=== PATIENT | male | born 1960 | race Caucasian/White ===

== ENCOUNTER 2017-09-11 19:00 | Observation (INO) ==
[2017-09-11] MEDS ORDERED: 0.9 % Sodium Chloride 1,000 ML IVC ONE (19:21)
[2017-09-11] MEDS ORDERED: Vancomycin 1,000 MG VIAL IVPB ONE (19:21)
[2017-09-11] MEDS ORDERED: cefTRIAXone 2,000 MG in Water for inj. (sterile) 20 ML 20 ML IVP ONE (19:25)
--- NOTE | 2017-09-11 19:27 | Emergency Department Note ---
Disposition Clinical Impression: Cellulitis and abscess of foot excluding toe Disposition: Admitted As Inpatient Condition: Good Instructions: Cellulitis (ED) Time of Disposition: 19:50 (Accepted by Dr Burden) Extremity Problem HPI - General Chief complaint: ED Extremity Problem,Nontraumatic Stated complaint: Painless open areas to left foot onset today Source: patient Limitations: no limitations Nursing Notes Reviewed: Yes Vital Signs Reviewed: Yes - History of Present Illness HPI Narrative: Patient is a pleasant 57-year-old male with past medical history significant for HTN, DM and Dyslipidemia who is presenting to [facility] Emergency Room with a chief complaint off left foot pain stating that skin is peeling. Patient was acting [place] yesterday and was wearing his socks. He did not take his socks off until today around noon wound he noticed erythema, pain and peeled the skin on the dorsum of his left foot. He states that he was wore new socks yesterday but kept them since yesterday. He denies any throbbing or tingling. He denies any prior pain in this foot. He states that the pain is radiating to his ankle joint. Patient denies any fever, chills or night sweats. Pt also denies any eye pain or visual disturbances. There is no sore throat, nasal drainages or facial congestion. There is no chest pain, palpitations or racing heart. Pt also denies any shortness of breath, cough or chest congestion. There is no abdominal pain, nausea, vomiting or diarrhea. There is no urgency, frequency or dysuria. Other than his left foot there is no other muskulo-skeletal pain, arthralgia or back pain. Patient also denies any rash, edema or pruritus. There is no neurological manifestations, no headache, no vertigo or weakness. The patient also denies any anxiety, depression, hallucinations and has no homicidal or suicidal ideations. There is no polyuria , polydipsia or recent weight change. There is no easy bruising or bleeding. Review of other systems is otherwise negative except above. Pt Subjective Complaint: extremity pain, extremity swelling Onset (ago): day(s) Consistency: Worsening Injury Location: lower extremity Pain Scale: 5 Quality: sharp, dull Radiation: none Improves with: nothing - Related Data Home Medications Medication Instructions Recorded Confirmed Lovastatin [Altoprev] 40 mg PO DAILY 09/11/17 09/11/17 Previous Rx's Medication Instructions Recorded Amlodipine Besylate 10 mg PO DAILY #20 tablet 04/04/17 Losartan Potassium [Cozaar] 50 mg PO DAILY #20 tab 04/04/17 Allergies Allergy/AdvReac Type Severity Reaction Status Date / Time Penicillins AdvReac See Verified 09/11/17 19:08 Comments All systems ED: reviewed and negative except as stated. Review of Systems: As Per HPI Constitutional: Denies: fever, chills, weakness Eyes: Denies: eye pain, eye discharge, vision change ENT ED: Denies: ear pain, throat pain, dental pain Cardiovascular: Denies: chest pain, palpitations, dyspnea on exertion Respiratory: Denies: cough, dyspnea, wheezes Gastrointestinal: Denies: abdominal pain, nausea, vomiting Genitourinary: Denies: urgency, dysuria, frequency Musculoskeletal: Reports: joint swelling, arthralgia, myalgia. Denies: back pain, neck pain Integumentary: Reports: rash, abrasion, lesions Psychiatric: Denies: anxiety, depression Endocrine: Denies: fatigue, heat or cold intolerance Hematological/Lymphatic: Denies: easy bleeding, easy bruising Past Medical History - Past Medical History Medical history: Reports: diabetes, hyperlipidemia, hypertension - Social History Smoking Status: Never smoker Smokeless Tobacco Status: Yes Alcohol use: Reports: none Drug use: Reports: none Physical Exam - General Limitations: no limitations General appearance: alert, in no apparent distress - Head Head exam: atraumatic, normocephalic, normal inspection - Eye Eye exam: Present: normal appearance, PERRL, EOMI - Expanded Eye Exam Pupils: Left: reactive - ENT ENT exam: normal exam, normal oropharynx, mucous membranes moist - Expanded ENT Exam External ear exam: Present: normal external inspection Mouth exam: Present: normal external inspection Teeth exam: Present: normal inspection Throat exam: Present: normal inspection - Neck Neck exam: Present: normal inspection, full ROM, trachea midline - Chest Chest inspection: Present: normal inspection, symmetric chest wall rise - Respiratory Respiratory exam: Present: normal lung sounds bilaterally - Cardiovascular Cardiovascular exam: Present: regular rate, normal rhythm, normal heart sounds - Abdominal Exam Abdominal exam: Present: soft, Non-Tender. Absent: tenderness, distention, guarding, rebound, rigidity - Extremities Exam Extremities exam: Present: normal inspection, full ROM. Absent: tenderness, pedal edema - Expanded Upper Extremity Exam Shoulder exam: Present: normal inspection, full ROM Arm exam: Present: normal inspection, full ROM Elbow exam: Present: normal inspection, full ROM Forearm/Wrist exam: Present: normal inspection, full ROM Hand exam: Present: normal inspection, full ROM Vascular exam: Normal: capillary refill, radial pulse - Expanded Lower Extremity Exam Hip/Pelvis exam: Present: normal inspection, full ROM Upper leg exam: Present: normal inspection, full ROM Knee exam: Present: normal inspection, full ROM Lower leg exam: Present: normal inspection, full ROM Ankle exam: Present: normal inspection, full ROM Foot/toe exam: Present: normal inspection, full ROM, tenderness, abrasion, ecchymosis, erythema, other (Left foot does somewhat to large about 44 cm with loss of epidermis the patient has granulation tissues there is another lesion about 32 with loss of epidermis and have granulation yellowish greater. There is erythema extending to the dorsum of the foot and sparing the toes and the ankle. There is tenderness on the palpation) Neurovascular/Tendon exam: Absent: motor deficit, sensory deficit, tendon deficit - Back Exam Back exam: Present: normal inspection, full ROM. Absent: tenderness - Neurological Exam Neurological exam: Present: alert, oriented X3 - Expanded Neurological Exam Patient oriented to: Present: person, place, time Coma Scale Eye Opening: Spontaneous Coma Scale Motor Response: Obeys Commands Coma Scale Verbal Response: Oriented Coma Scale Total: 15 - Psychiatric Psychiatric exam: Present: normal affect, normal mood - Skin Skin exam: Present: warm, dry, intact, normal color Course Vital Signs Pulse Rate 97 09/11/17 19:00 Temperature 98.4 F 09/11/17 19:01 Pulse Rate 97 09/11/17 19:01 Respiratory Rate 18 09/11/17 19:01 Blood Pressure 186/79 09/11/17 19:01 O2 Sat by Pulse Oximetry 98 09/11/17 19:01 Oxygen Delivery Oxygen Delivery Room Air Extremity Problem, Nontraumati - MDM Narrative Medical decision making narrative: Stat IV fluid That ceftriaxone and vancomycin Admit for IV antibiotics given the state status the patient is diabetic and have poor vascularization and given the fact that dorsalis pedis is only 1+ - Differential Diagnosis Likely: cellulitis, superficial thrombophlebitis, lower extremity edema, occult trauma - Medical Records Medical records reviewed: Yes I reviewed the patient's medical records. - Lab Data Lab results reviewed: Yes I reviewed the patient's lab results. Result diagrams: 09/11/17 19:50 09/11/17 19:50 Lab Results 09/11/17 09/11/17 09/11/17 Range/Units 19:50 19:50 19:50 WBC 7.6 (4.3-11.1) K/mcL RBC 3.16 L (4.19-5.50) M/mcL Hgb 9.6 L (12.9-16.9) g/dL Hct 27.1 L (37.5-50.1) % MCV 85.8 (83.0-100.0) fL MCH 30.4 (28.0-33.3) pg MCHC 35.4 (31.6-35.5) g/dL RDW 13.0 (11.5-14.5) % Plt Count 112 L (140-400) K/mcL MPV 8.8 L (9.4-12.4) fL Immature Gran % 0.4 (0-4) % Seg Neutrophils % 85.5 % Lymphocytes % 8.0 % Monocytes % 5.7 % Eosinophils % 0.3 % Basophils % 0.1 % Neutrophils # 6.5 (1.6-8.9) K/mcL Lymphocytes # 0.6 (0.6-4.6) K/mcL Monocytes # 0.4 (0.0-1.3) K/mcL Eosinophils # 0.0 (0.0-0.6) K/mcL Basophils # 0.0 (0.0-0.2) K/mcL ESR 63 H (0-20) mm/hr Sodium 134 L (136-145) mEq/L Potassium 3.9 (3.5-5.1) mEq/L Chloride 96 L (98-107) mEq/L Carbon Dioxide 28 (23-29) mEq/L BUN 19 (6-20) mg/dL Creatinine 1.08 (0.70-1.30) mg/dL Est GFR ( Amer) > 60 (> 60) Est GFR (Non-Af Amer) > 60 (> 60) BUN/Creatinine Ratio 18 (6-26) Glucose 210 H (70-105) mg/dL Calculated Osmolality 286 (280-300) Calcium 9.3 (8.6-10.3) mg/dL - Radiology Data Radiology results reviewed: Yes I reviewed the patient's radiology results.
[2017-09-11 20:04] LABS: Basophils % 0.1 %; Eosinophils % 0.3 %; Hematocrit 27.1 % (37.5-50.1); Hemoglobin 9.6 g/dL (12.9-16.9); Immature Granulocytes % 0.4 % (0-4); Lymphocytes # 0.6 K/mcL (0.6-4.6); Mean Corpuscular HGB Conc 35.4 g/dL (31.6-35.5); Mean Corpuscular Hemoglobin 30.4 pg (28.0-33.3); Mean Corpuscular Volume 85.8 fL (83.0-100.0); Mean Platelet Volume 8.8 fL (9.4-12.4); Monocytes # 0.4 K/mcL (0.0-1.3); Monocytes % 5.7 %; Neutrophils # 6.5 K/mcL (1.6-8.9); Platelet Count 112 K/mcL (140-400); Red Blood Count 3.16 M/mcL (4.19-5.50); Segmented Neutrophils % 85.5 %
[2017-09-11] MEDS ORDERED: Naloxone 0.4 MG/ML INJ IVP PRN ×2 (20:16→21:49)
[2017-09-11 20:30] LABS: BUN/Creatinine Ratio 18 (6-26); Blood Urea Nitrogen 19 mg/dL (6-20); Calcium 9.3 mg/dL (8.6-10.3); Carbon Dioxide 28 mEq/L (23-29); Chloride 96 mEq/L (98-107); Glucose 210 mg/dL (70-105); Osmolality,Calculated 286 (280-300); Potassium 3.9 mEq/L (3.5-5.1); Sodium 134 mEq/L (136-145); eGFR For African Americans > 60 (> 60); eGFR For Non-African Americans > 60 (> 60)
[2017-09-11] MEDS: *HR* OxyCODONE/APAP 5/325 TABLET PO PRN (23:19)
[2017-09-12] MEDS: *HR* OxyCODONE/APAP 5/325 TABLET PO PRN ×4 (02:36→21:54)
[2017-09-12 07:12] LABS: Hematocrit 24.3 % (37.5-50.1); Hemoglobin 8.4 g/dL (12.9-16.9); Mean Corpuscular HGB Conc 34.6 g/dL (31.6-35.5); Mean Corpuscular Hemoglobin 30.3 pg (28.0-33.3); Mean Corpuscular Volume 87.7 fL (83.0-100.0); Mean Platelet Volume 9.3 fL (9.4-12.4); Platelet Count 107 K/mcL (140-400); Red Blood Count 2.77 M/mcL (4.19-5.50)
[2017-09-12 07:37] LABS: Activated Partial Thrombo Time 33.3 Seconds (26.0-36.0); BUN/Creatinine Ratio 14 (6-26); Blood Urea Nitrogen 16 mg/dL (6-20); Calcium 8.7 mg/dL (8.6-10.3); Carbon Dioxide 30 mEq/L (23-29); Chloride 100 mEq/L (98-107); Glucose 177 mg/dL (70-105); Osmolality,Calculated 290 (280-300); Potassium 3.5 mEq/L (3.5-5.1); Sodium 137 mEq/L (136-145); eGFR For African Americans > 60 (> 60); eGFR For Non-African Americans > 60 (> 60)
[2017-09-12 07:40] LABS: INR 1.2; Prothrombin Time 13.1 Seconds (9.4-12.1)
[2017-09-12] MEDS ORDERED: amLODIPine 5 MG TABLET PO SCH (09:00)
--- NOTE | 2017-09-12 12:05 | Internal Med History&Physical ---
Date of Encounter: 09/12/17 Time of Encounter: 11:10 Assessment and Plan (1) Cellulitis and abscess of foot excluding toe Current visit: Yes Status: Acute He has been started on IV vancomycin. Left foot CT will be ordered to further evaluate. Silvadene will be used topically. Further workup and treatment will be done as needed. (2) Anemia Current visit: Yes Status: Acute Duration unknown. Will order anemia testing. Qualifiers: Anemia type: unspecified type Qualified Code(s): D64.9 - Anemia, unspecified (3) DM type 2 (diabetes mellitus, type 2) Current visit: Yes Status: Chronic Check hemoglobin A1c. Accu-Cheks with SSI will be done. 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 (5) Gout Current visit: Yes Status: Acute Uric acid level will be checked. Qualifiers: Gout site: unspecified site Gout etiology: unspecified cause Chronicity: unspecified Qualified Code(s): M10.9 - Gout, unspecified (6) Hyperlipidemia Current visit: Yes Status: Chronic Lipid profile will be ordered. Qualifiers: Hyperlipidemia type: unspecified Qualified Code(s): E78.5 - Hyperlipidemia , unspecified Internal Medicine - H&P: HPI Chief complaint: Left foot infection Admitted From: Emergency Dept Plans for Post Hospital Care: Home History of present illness: Mr. Davis is a 57 year old male who came to emergency room stating he noticed redness and drainage from his left foot the morning of September 11. He reports he had done significant amount of walking the previous day while on a family outing at [facility]. After contemplation he decided to come to emergency room. He was evaluated and found to have cellulitis with multiple ulcers on the foot and early lymphangitic streaking and the lower leg. He was admitted to [facility] floor for ongoing care needs. He states there was no injury or abnormality to the foot prior to the [facility] outing. Past Med Surg Social Fam HX - Past Medical History Medical history: diabetes, hyperlipidemia, hypertension Psychiatric history: depression - Past Surgical History Surgical History: appendectomy Additional surgical history: Right rotator cuff. Left shoulder surgery. Skin graft x2 R forearm 2014 for brown recluse spider bite. carpal tunnel release. Lost right index finger due to infection in 2013 - Social History Smoking Status: Never smoker Smokeless Tobacco Status: Yes Alcohol use: none Drug use: none Internal Medicine - H&P: Meds Amlodipine Besylate 10 mg PO DAILY #20 tablet 04/04/17 [Rx] Losartan Potassium [Cozaar] 50 mg PO DAILY #20 tab 04/04/17 [Rx] Lovastatin [Altoprev] 40 mg PO DAILY 09/11/17 [History] 3 Allergy/AdvReac Type Severity Reaction Status Date / Time Penicillins AdvReac See Verified 09/11/17 19:08 Comments All Systems PM: A 10-system review of systems was performed and is negative for pertinent findings except as documented above in the HPI. Review of systems: Gen.: He states his weight has decreased approximately 35-40 pounds in the past year, unintentionally Cardiovascular: He has history of hypertension but denies WI heart failure angina DVT or pulmonary embolus Respiratory: He is a lifelong nonsmoker and denies chronic lung disease GI: Denies disorders of his liver gallbladder or exocrine pancreas : He denies hematuria dysuria or kidney stones Neurologic: He denies large distribution strokes or seizures. Endocrine: He was diagnosed with DM 2 approximately 2007. He has hyperlipidemia but denies thyroid disease Hematology/oncology: He has anemia but does not know specific etiology. He denies internal malignancies or other blood disorders Psychiatric: He has history of depression and took psychiatric medication in the past but his had none for approximately one year. He denies anxiety or other mental health issues Musko skeletal: He has DJD and history of gout. He has had left clavicle partially resected. He had significant surgery on his right forearm following a spider bite including debridement and 2 skin grafts. 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 - Constitutional Vitals: Temp Pulse Resp BP Pulse Ox 98.7 F 78 16 173/77 99 09/12/17 11:08 09/12/17 11:08 09/12/17 11:08 09/12/17 11:08 09/12/17 11:08 Exam: Gen.: He is a well-developed well-nourished male lying in bed who appears in no acute distress at rest HEENT: Head is atraumatic and normocephalic. Eyes: EOMI. There is no scleral icterus. Mouth: Mucosa is moist. Neck: Supple and nontender. There is no thyromegaly or adenopathy noted. Heart: Regular without murmurs gallops or ectopics Lungs: No wheezes or crackles are heard. Abdomen: Soft and nontender. No masses or guarding are noted. Extremities: There is a shallow ulcer on the right lateral malleolus approximately 3 mm diameter with minimal exudate in the base. There is no surrounding erythema. The left foot shows mild diffuse erythema extending from the mid metatarsal area proximally. There is faint lymphangitic streaking in the lower anterior marin area. He has ruptured blisters on the sole measuring 15 -20 mm with maceration of the overlying skin. The dorsum of the left foot shows a denuded area approximately 20 mm with some eschar in the base and greenish drainage at the margins. There is a similar-appearing but smaller area medial to this larger one. His right index finger is surgically absent. He has minimal DJD changes of his hands. Neurologic: Mental status: He is talkative and a good historian. Cranial nerves : Smile is symmetric. Forehead wrinkles bilaterally. Tongue protrudes midline. EOMI. Motor: There is no pronator drift. Cerebellar: Finger to nose is intact bilaterally. Skin: Warm and dry Internal Med - H&P Results - Labs CBC & Chem 7: 09/12/17 06:58 09/12/17 06:58 Labs: Short CBC 09/12/17 Range/Units 06:58 WBC 5.6 (4.3-11.1) K/mcL Hgb 8.4 L (12.9-16.9) g/dL Hct 24.3 L (37.5-50.1) % Plt Count 107 L (140-400) K/mcL BMP 09/12/17 06:58 Sodium 137 Potassium 3.5 Chloride 100 Carbon Dioxide 30 H BUN 16 Creatinine 1.12 Glucose 177 H Calcium 8.7
[2017-09-12] MEDS ORDERED: Silver Sulfadiazine 50 GM TUBE TP SCH (12:15)
[2017-09-12 14:07] LABS: Magnesium 1.3 mg/dL (1.6-2.6)
[2017-09-12 14:50] LABS: Thyroid Stimulating Hormone 2.115 mcIU/mL (0.340-5.600)
[2017-09-12] MEDS ORDERED: Naloxone 0.4 MG/ML INJ IVP PRN (15:03)
[2017-09-12 16:58] LABS: Estimated Average Glucose 128 mg/dl; Hemoglobin A1C 6.1 %
[2017-09-13] MEDS: *HR* OxyCODONE/APAP 5/325 TABLET PO PRN ×4 (03:38→18:45)
[2017-09-13 06:19] LABS: Basophils % 0.7 %; Eosinophils # 0.1 K/mcL (0.0-0.6); Eosinophils % 2.3 %; Hematocrit 24.9 % (37.5-50.1); Hemoglobin 8.8 g/dL (12.9-16.9); Immature Granulocytes % 0.7 % (0-4); Lymphocytes % 22.6 %; Mean Corpuscular HGB Conc 35.3 g/dL (31.6-35.5); Mean Platelet Volume 9.1 fL (9.4-12.4); Monocytes # 0.3 K/mcL (0.0-1.3); Monocytes % 6.7 %; Neutrophils # 2.9 K/mcL (1.6-8.9); Platelet Count 113 K/mcL (140-400); Red Blood Count 2.93 M/mcL (4.19-5.50); Red Cell Distribution Width 12.9 % (11.5-14.5)
[2017-09-13 06:41] LABS: Alanine Aminotransferase 13 Units/L (7-52); Albumin 3.8 g/dL (3.5-5.7); Albumin/Globulin Ratio 1.2 (1.1-2.2); Alkaline Phosphatase 45 Units/L (34-104); Aspartate Amino Transferase 15 Units/L (13-39); BUN/Creatinine Ratio 16 (6-26); Bilirubin,Total 0.7 mg/dL (0.3-1.0); Blood Urea Nitrogen 16 mg/dL (6-20); Calcium 9.3 mg/dL (8.6-10.3); Carbon Dioxide 28 mEq/L (23-29); Chloride 102 mEq/L (98-107); Chol/HDL Ratio 3.6 (0-4.9); Globulin 3.2 g/dL (2.4-3.5); Glucose 169 mg/dL (70-105); Osmolality,Calculated 291 (280-300); Potassium 3.9 mEq/L (3.5-5.1); Sodium 138 mEq/L (136-145); Uric Acid 2.4 mg/dL (2.3-7.6); eGFR For African Americans > 60 (> 60); eGFR For Non-African Americans > 60 (> 60)
[2017-09-13 08:57] LABS: % Iron Saturation 15 % (20-55); Iron 37 mcg/dL (65-175); Transferrin 181 mg/dL (203-362)
[2017-09-13] MEDS ORDERED: NON-FORMULARY MEDICATION 1 EACH EACH (Lovastatin [Altoprev] 40 MG) PO SCH (09:00)
[2017-09-13] MEDS: amLODIPine 5 MG TABLET PO SCH (09:13)
[2017-09-13 09:16] LABS: Ferritin 260 ng/mL (20-250)
[2017-09-13 09:21] LABS: Folate 10.4 ng/mL (3.0-16.0)
--- NOTE | 2017-09-13 10:08 | Internal Med Progress Note ---
Date of Encounter: 09/13/17 Time of Encounter: 10:00 - Assessment and plan (1) Cellulitis and abscess of foot excluding toe Current Visit: Yes Status: Acute Assessment and plan: September 13. Preliminary culture report noted. Continue vancomycin and topical Silvadene. Order PT and OT evaluation to evaluate and instruct on nonweightbearing status left foot until ulcers satisfactorily improved. (2) Anemia Current Visit: Yes Status: Acute Assessment and plan: September 13. Anemia testing shows iron 37, transferrin saturation 15%, transferrin 181, ferritin 260, B12 241, and folate 10.4. Will start ferrous sulfate with vitamin C and oral B12 supplement. Qualifiers: Anemia type: unspecified type Qualified Code(s): D64.9 - Anemia, unspecified (3) DM type 2 (diabetes mellitus, type 2) Current Visit: Yes Status: Chronic Assessment and plan: September 13. Hemoglobin A1c acceptable at 6.1%. He uses Lantus 57 units daily at home. Will restart at lower dose.. Qualifiers: Diabetes mellitus halfway insulin use: with halfway use Diabetes mellitus complication status: without complication Qualified Code(s): E11.9 - Type 2 diabetes mellitus without complications; Z79.4 - computer terminal operator (current) use of insulin (4) Weight loss Current Visit: Yes Status: Acute Assessment and plan: September 13. Abdominal CT scan unremarkable. TSH and hemoglobin A1c acceptable. Continue to monitor. (5) Gout Current Visit: Yes Status: Acute Assessment and plan: September 13. Uric acid level acceptable at 2.4. Qualifiers: Gout site: unspecified site Gout etiology: unspecified cause Chronicity: unspecified Qualified Code(s): M10.9 - Gout, unspecified (6) Hyperlipidemia Current Visit: Yes Status: Chronic Assessment and plan: September 13. Total/HDL ratio 3.6. Continue statin Qualifiers: Hyperlipidemia type: unspecified Qualified Code(s): E78.5 - Hyperlipidemia , unspecified - Subjective Interval history: September 13. He has no new complaints. - Constitutional Vitals: Temp Pulse Resp BP Pulse Ox 98.7 F 78 16 130/70 98 09/13/17 06:00 09/13/17 06:00 09/13/17 06:00 09/13/17 06:00 09/13/17 06:00 Exam: He is resting comfortably in bed. The left foot shows minimal change in the ulcerative areas. There is no significant erythema surrounding the ulcerative areas. I reviewed his medications and CT results. I reviewed pertinent lab results with him. Internal Medicine: Result - Labs CBC & Chem 7: 09/13/17 05:58 09/13/17 05:58 Labs: Short CBC 09/13/17 Range/Units 05:58 WBC 4.3 (4.3-11.1) K/mcL Hgb 8.8 L (12.9-16.9) g/dL Hct 24.9 L (37.5-50.1) % Plt Count 113 L (140-400) K/mcL Neutrophils # 2.9 (1.6-8.9) K/mcL BMP 09/13/17 05:58 Sodium 138 Potassium 3.9 Chloride 102 Carbon Dioxide 28 BUN 16 Creatinine 0.98 Glucose 169 H Calcium 9.3 Liver Function 09/13/17 Range/Units 05:58 Total Bilirubin 0.7 (0.3-1.0) mg/dL AST 15 (13-39) Units/L ALT 13 (7-52) Units/L Alkaline Phosphatase 45 (34-104) Units/L Albumin 3.8 (3.5-5.7) g/dL - ABG Interpretation ABG results: PT/INR, D-dimer PT 13.1 Seconds (9.4-12.1) H 09/12/17 06:58 - Impressions Impressions Foot CT 09/12/17 11:[address]: [address] evidence of osteomyelitis or other acute osseous abnormality. 2. 3.2 x 2.9 x 0.8 cm subcutaneous fluid collection along the plantar aspect of the midfoot. 3. Mild diffuse subcutaneous fat stranding compatible with cellulitis. 4. Shallow soft tissue ulceration along the lateral aspect of the mid and forefoot. No deep soft tissue ulceration or sinus tract. D/ / Pablo Dang MD / Pablo Dang MD Interpreting Provider: Pablo Dang MD Abdomen/Pelvis CT 09/12/17 12:22 IMPRESSION: 1. Evaluation for intra- abdominal masses limited in the absence of IV contrast. No focal masses. 2. Splenomegaly. D/ / Chan Hawthorne MD / Chan Hawthorne MD Interpreting Provider: Chan Hawthorne MD Consult Discharge Plan - Plan Instructions: Cellulitis (ED) Referrals: Maurice Montenegro DO [Family Provider] - Felecia Qureshi MD [Primary Care Provider] -
[2017-09-13] MEDS: Silver Sulfadiazine 50 GM TUBE TP SCH (11:32)
[2017-09-13] MEDS: Cyanocobalamin (B-12) 1,000 MCG TABLET PO SCH (11:33)
[2017-09-14] MEDS: *HR* OxyCODONE/APAP 5/325 TABLET PO PRN ×3 (00:43→12:42)
[2017-09-14] MEDS ORDERED: Ascorbic Acid 500 MG TABLET PO SCH (06:30)
[2017-09-14] MEDS: Cyanocobalamin (B-12) 1,000 MCG TABLET PO SCH (08:31)
[2017-09-14] MEDS: amLODIPine 5 MG TABLET PO SCH (08:33)
[2017-09-14] MEDS: Silver Sulfadiazine 50 GM TUBE TP SCH (08:34)
--- NOTE | 2017-09-14 11:14 | Discharge Summary ---
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 Diabetes mellitus complication status: without complication Qualified Code(s): E11.9 - Type 2 diabetes mellitus without complications; Z79.4 - ocean transportation intermediary (current) use of insulin (4) Weight loss Priority: Secondary Status: Chronic (5) Gout Priority: Secondary Status: Chronic Qualifiers: Gout site: unspecified site Gout etiology: unspecified cause Chronicity: unspecified Qualified Code(s): M10.9 - Gout, unspecified (6) Hyperlipidemia Priority: Secondary Status: Chronic Qualifiers: Hyperlipidemia type: unspecified Qualified Code(s): E78.5 - Hyperlipidemia , unspecified Hospital course: Mr. Davis is a 57 year old male who came to emergency room stating he noticed redness and drainage from his left foot the morning of September 11. He reports he had done significant amount of walking the previous day while on a family outing at [facility]. After contemplation he decided to come to emergency room. He was evaluated and found to have cellulitis with multiple ulcers on the foot and early lymphangitic streaking and the lower leg. He was admitted to [facility] floor for ongoing care needs. Initial orders were written by the emergency room physician. I saw him on September 12 and performed the history and physical. He was started on IV vancomycin. Silvadene dressings were used for foot ulcers. Culture report showed staph aureus and Enterobacter cloacae. Both organisms were sensitive to Septra DS. On September 14 he was stable for discharge home. He will continue with oral antibiotic and probiotic for 7 days after discharge. Home health services be ordered to do daily dressing changes. He was instructed by therapist on ambulation without weightbearing. A standard walker was prescribed for DME. His PCP can monitor progress and determine if additional antibiotics are needed. Anemia testing showed iron 37, transferrin saturation 15%, transferrin 181, ferritin 260, B12 241, and folate 10.4. He was started on ferrous sulfate with vitamin C and oral B12 supplement. These will be continued at discharge. Hemoglobin A1c returned satisfactory at 6.1%. He will continue present diabetic regimen at home. Magnesium level returned low at 1.3. He will be given magnesium oxide at discharge. His PCP can monitor this. He will follow with his PCP Dr. Qureshi within 1 week. - Time Spent with Patient Total time spent providing and/or coordinating discharge services: - Discharge Medications Prescriptions: Ascorbic Acid [C-500] 500 mg PO DAILY #30 tablet Cyanocobalamin (B-12) [Vitamin B12] 1,000 mcg PO DAILY #30 tablet Ferrous Sulfate 325 mg PO DAILY #30 tablet Lactobacillus [Culturelle] 1 each PO BID #14 cap.sprink Magnesium Oxide [Mag-Ox] 400 mg PO DAILY #7 tablet Magnesium Oxide [Mag-Ox] 400 mg PO DAILY #7 tablet Sulfamethoxazole/Trimeth DS [Bactrim DS] 1 each PO BID #14 tablet Home Medications: Amlodipine Besylate 10 mg PO DAILY #20 tablet 04/04/17 [Rx] Losartan Potassium [Cozaar] 50 mg PO DAILY #20 tab 04/04/17 [Rx] Lovastatin [Altoprev] 40 mg PO DAILY 09/11/17 [History] Ascorbic Acid [C-500] 500 mg PO DAILY #30 tablet 09/14/17 [Rx] Cyanocobalamin (B-12) [Vitamin B12] 1,000 mcg PO DAILY #30 tablet 09/14/17 [Rx] Ferrous Sulfate 325 mg PO DAILY #30 tablet 09/14/17 [Rx] Lactobacillus [Culturelle] 1 each PO BID #14 cap.sprink 09/14/17 [Rx] Magnesium Oxide [Mag-Ox] 400 mg PO DAILY #7 tablet 09/14/17 [Rx] Magnesium Oxide [Mag-Ox] 400 mg PO DAILY #7 tablet 09/14/17 [Rx] Sulfamethoxazole/Trimeth DS [Bactrim DS] 1 each PO BID #14 tablet 09/14/17 [Rx] Allergies/Adverse Reactions: 3 Allergy/AdvReac Type Severity Reaction Status Date / Time Penicillins AdvReac See Verified 09/11/17 19:08 Comments Date of admission: 09/11/17 20:22 Primary care physician: Felecia Qureshi MD Consults: 09/13/17 10:13 Consult to Occupational Therapy [CONS] Routine Comment: Evaluate, develop and implement POC Reason for Consult: Nonweightbearing left foot until ulcers healed Does patient have active BEDREST order?: No Is patient medically & hemodynamically stable?: Yes Patient assessed for mobility or mobilized this visit?: Yes Consult to Physical Therapy [CONS] Routine Comment: Evaluate, develop and implement POC Reason for Consult: Nonweightbearing left foot until ulcers healed Does patient have active BEDREST order?: No Is patient medically & hemodynamically stable?: Yes Patient assessed for mobility or mobilized this visit?: Yes - Constitutional Vitals: Temp Pulse Resp BP Pulse Ox 97.6 F 89 16 152/74 99 09/14/17 03:27 09/14/17 03:27 09/14/17 03:27 09/14/17 03:27 09/14/17 03:27 - Patient Status Disposition: Home Health Service Condition: Good Functional capacity at discharge: uses cane/walker - Discharge Instructions Instructions: Cellulitis (ED) Follow Up With: Felecia Qureshi MD [Primary Care Provider] - - Diet and Activity Activity: as per physical therapy Diet: diabetic diet
[2017-09-14 11:19] VITALS: BP 197/83
--- NOTE | 2017-09-14 11:24 | Physician Discharge Referral ---
Home Health/Hosp Referral Info Transfer to: Home Health Attending Provider: Bertram Provider in Charge Post Discharge: PCP (Titus) - Diagnosis (1) Cellulitis and abscess of foot excluding toe Priority: Primary Status: Acute (2) Anemia Priority: Secondary Status: Acute (3) DM type 2 (diabetes mellitus, type 2) Priority: Secondary Status: Chronic (4) Weight loss Priority: Secondary Status: Chronic (5) Gout Priority: Secondary Status: Chronic (6) Hyperlipidemia Priority: Secondary Status: Chronic - Respiratory Orders Smoking Cessation: Smoking cessation has been advised. For more information, call the [place] Tobacco Quit Line at 1-813-FWXE-NOW. - Dressing/Wound Care Type of Dressing/Treatments w/Frequency: Clean left foot wounds daily with gentle washing of soap and water. Cover with Silvadene cream and gauze wrap. - Diet/Nutrition Diet/Nutrition Orders: No Concentrated Sweets - Activity Activity Orders: Walker - Services Needed Following services are medically necessary services: Nursing, Home Health Aide, Physical Therapy, Occupational Therapy - Transfer Medications Prescriptions: Ascorbic Acid [C-500] 500 mg PO DAILY #30 tablet Cyanocobalamin (B-12) [Vitamin B12] 1,000 mcg PO DAILY #30 tablet Ferrous Sulfate 325 mg PO DAILY #30 tablet Lactobacillus [Culturelle] 1 each PO BID #14 cap.sprink Magnesium Oxide [Mag-Ox] 400 mg PO DAILY #7 tablet Magnesium Oxide [Mag-Ox] 400 mg PO DAILY #7 tablet Sulfamethoxazole/Trimeth DS [Bactrim DS] 1 each PO BID #14 tablet Home Medications: Amlodipine Besylate 10 mg PO DAILY #20 tablet 04/04/17 [Rx] Losartan Potassium [Cozaar] 50 mg PO DAILY #20 tab 04/04/17 [Rx] Lovastatin [Altoprev] 40 mg PO DAILY 09/11/17 [History] Ascorbic Acid [C-500] 500 mg PO DAILY #30 tablet 09/14/17 [Rx] Cyanocobalamin (B-12) [Vitamin B12] 1,000 mcg PO DAILY #30 tablet 09/14/17 [Rx] Ferrous Sulfate 325 mg PO DAILY #30 tablet 09/14/17 [Rx] Lactobacillus [Culturelle] 1 each PO BID #14 cap.sprink 09/14/17 [Rx] Magnesium Oxide [Mag-Ox] 400 mg PO DAILY #7 tablet 09/14/17 [Rx] Magnesium Oxide [Mag-Ox] 400 mg PO DAILY #7 tablet 09/14/17 [Rx] Sulfamethoxazole/Trimeth DS [Bactrim DS] 1 each PO BID #14 tablet 09/14/17 [Rx] Allergies/Adverse Reactions: 3 Allergy/AdvReac Type Severity Reaction Status Date / Time Penicillins AdvReac See Verified 09/11/17 19:08 Comments Certification: Further, I certify that my clinical findings support that this patient is homebound (i.e. absences from home require considerable and taxing effort and are for medical reasons or rastafarian services or infrequently or short duration when for other reasons) because: Homebound Reason: Leaving home requires considerable and taxing effort due to condition (Impaired walking ability secondary to left foot ulcers) Attestation: My signature below is to certify that this patient is under my care and that I, or nurse practitioner, or a physician's pharmacist assistant working with me, has a face-to -face encounter with this patient.
[2017-09-14] MEDS ORDERED: Aminoglycoside Consult 1 EACH MC ONE (13:00)
== END 2017-09-14 15:00 | disposition home health service (06) ==
LOC: EMEROOPIK 19:00 → INPPIK 19:00
PROVIDERS: ADMIT Internal Medicine; ATTEND Internal Medicine